=== PATIENT | male | born 1995 | race Caucasian/White ===

== ENCOUNTER 2022-07-30 10:15 | Emergency (ER) | payer SELFPAY ==
[2022-07-30 10:24] VITALS: BP 120/76; PULSE 68; RESP 17; TEMP 98.3; BMI 35.4
[2022-07-30] MEDS ORDERED: KETOROLAC TROMETHAMINE 30 MG/1 ML VIAL IM ONE (11:45)
[2022-07-30] MEDS ORDERED: CEPHALEXIN 250 MG/5 ML ORAL SUSPENSION PO ONE (11:46)
[2022-07-30] MEDS ORDERED: CEPHALEXIN MONOHYDRATE 500 MG CAPSULE (UD) ONE (11:48)
[2022-07-30] MEDS ORDERED: KETOROLAC TROMETHAMINE 30 MG/1 ML VIAL ONE (11:48)
== END 2022-07-30 14:25 | disposition home or self-care (01) ==
LOC: JERFT 10:15
PROC: 3E0233Z Introduction of Anti-inflammatory into Muscle, Percutaneous Approach (ICD-10-PCS; principal; 2022-07-30)
DX: M79.644 Pain in right finger(s) (principal)
CPT/HCPCS: 73130-TC-LT-FY; 73130-TC-RT-FY; 99284-25

== ENCOUNTER 2022-08-02 10:18 | Emergency (ER) | payer SELFPAY ==
[2022-08-02 10:25] VITALS: BP 112/71; PULSE 67; RESP 18; TEMP 98.2; BMI 35.4
[2022-08-02] MEDS ORDERED: DALBAVANCIN HCL 1,500 MG in DEXTROSE 5%-WATER - 500 ML IVPB ONE (12:19)
[2022-08-02] MEDS ORDERED: DALBAVANCIN HCL 500 MG VIAL (RESTRICTED TO ID ONLY) IVPB ONE ×2 (12:25→12:28)
[2022-08-02 12:33] LABS: BASO % 0.7 % (0-2.0); EOS % 1.3 % (0-4.5); HEMATOCRIT 40.2 % (35.4-49); HEMOGLOBIN 13.9 GM/dL (11.7-16.9); MCH 29.1 pg (25.7-33.7); MCHC 34.6 g/dl (32.0-35.9); MEAN CELL VOLUME 84.1 fl (80-96); MEAN PLT VOLUME 7.8 fl (7.5-11.1); MONO % 5.4 % (3.8-10.2); NEUT % 70.6 % (42.8-82.8); PLATELET COUNT 265 10^3/uL (134-434); RBC 4.78 M/mm3 (4.00-5.60); RDW 13.8 % (11.9-15.9); WHITE BLOOD COUNT 8.4 K/mm3 (4.0-10.0)
[2022-08-02 12:55] LABS: CALCIUM 8.9 mg/dL (8.5-10.1)
[2022-08-02 12:56] LABS: BLOOD UREA NITROGEN 11.7 mg/dL (7-18)
[2022-08-02 12:59] LABS: CREATININE 0.8 mg/dL (0.55-1.3)
[2022-08-02 13:01] LABS: BILIRUBIN,TOTAL 0.4 mg/dL (0.2-1); TOT PROT 7.4 g/dl (6.4-8.2)
== END 2022-08-02 14:57 | disposition home or self-care (01) ==
LOC: JERFT 10:18
DX: Z48.00 Encounter for change or removal of nonsurgical wound dressing (principal)
CPT/HCPCS: 36415; 80053; 85025; 99281-25; J0875

== ENCOUNTER 2023-01-21 20:27 | Emergency (ER) | payer OTHER ==
[2023-01-21 20:32] VITALS: BP 131/83; PULSE 100; RESP 18; TEMP 99.5; BMI 31.0
[2023-01-22 00:02] LABS: THROAT:GRP A STREP NOT DETECTED (NOTDETECTED)
== END 2023-01-22 04:04 | disposition left against medical advice (07) ==
LOC: JERFT 20:27 → JER 20:27
DX: J02.9 Acute pharyngitis, unspecified (principal); J06.9 Acute upper respiratory infection, unspecified
CPT/HCPCS: 0241U-QW; 87070; 87651; 99283-25

== ENCOUNTER 2023-07-25 17:45 | Emergency (ER) | payer OTHER ==
[2023-07-25 17:51] VITALS: BP 121/71; PULSE 77; RESP 18; TEMP 98.3; BMI 31.7
[2023-07-25] MEDS ORDERED: FLUORESCEIN NA 1 EA STRIP OD ONE (21:01)
[2023-07-25] MEDS ORDERED: TETRACAINE 0.5% OPHTH SOLN 2 ML BOTTLE OD ONE (21:01)
[2023-07-25] MEDS ORDERED: FLUORESCEIN NA 1 EA STRIP ONE (21:03)
[2023-07-25] MEDS ORDERED: TETRACAINE 0.5% OPHTH SOLN 2 ML BOTTLE ONE (21:03)
[2023-07-26] MEDS ORDERED: CIPROFLOXACIN 0.3% EYE DROPS 5 ML BOTTLE OD SCH (06:00)
== END 2023-07-25 22:44 | disposition home or self-care (01) ==
LOC: JERFT 17:45 → JER 17:45 → JERFT 22:44
DX: H57.11 Ocular pain, right eye (principal); S05.01XA Injury of conjunctiva and corneal abrasion without foreign body, right eye, initial encounter; H53.8 Other visual disturbances; X58.XXXA Exposure to other specified factors, initial encounter
CPT/HCPCS: 99283-25